=== PATIENT | female | born 1970 | race Two or more races ===

== ENCOUNTER 2023-12-03 10:02 | Emergency (ER) | payer OTHER ==
[~2023-12-03] VITALS: Ht 157.5 cm; Wt 74.8 kg
[2023-12-03] MEDS ORDERED: ACETAMINOPHEN 500 MG GEL..CAP PO ONE (10:45)
[2023-12-03 11:22] LABS: HEMATOCRIT 41.5 % (36.0-45.00); MEAN CELL VOLUME 91.9 fL (80.00-100.00); MEAN CORPUSCULAR HGB CONC 33.7 g/dl (32.0-36.0); PLATELET COUNT 392 K/uL (150-450); RED BLOOD COUNT 4.52 M/uL (4.00-6.00); RED CELL DISTRIBUTION WIDTH 12.9 % (11.5-14.5)
[2023-12-03 11:38] LABS: CALCIUM 9.7 mg/dL (8.5-10.1); CREATININE SERUM 0.61 mg/dL (0.55-1.02); GFR 102.6; POTASSIUM 4.16 mEq/L (3.5-5.1)
[2023-12-03 12:40] VITALS: BP 122/80; O2SAT 95
== END 2023-12-03 12:41 | disposition home or self-care (01) ==
LOC: ER 10:04
PROVIDERS: General Practice
DX: R51.9 Headache, unspecified (principal); R20.2 Paresthesia of skin